=== PATIENT | male | born 1940 | race Caucasian/White ===

== ENCOUNTER 2019-04-05 17:43 | Emergency (ER) | payer BC, MEDICARE ==
[2019-04-05 18:23] VITALS: BP 155/96
--- NOTE | 2019-04-05 18:43 | UC ---
Bite Injury/Animal HPI - HPI Summary HPI Summary: 78-year-old male with a chief complaint of a tick them that it in his right chest wall. Patient believes his been there for couple of days. He notes that today he and his pulled out most of it but the mouth parts are still left in there. There is a small amount of redness right near the the mouth parts. No bull's-eye rash. No fevers or chills patient feels well. - History of Current Complaint Chief Complaint: UCSkin Stated Complaint: TICK BITE Time Seen by Provider: 04/05/19 18:34 Pain Intensity: 4 - Allergies/Home Medications Allergies/Adverse Reactions: Allergies Allergy/AdvReac Type Severity Reaction Status Date / Time No Known Allergies Allergy Verified 04/05/19 18:23 Home Medications: Home Medications Naproxen Sodium [Aleve] PRN 04/05/19 [History] PMH/Surg Hx/FS Hx/Imm Hx Previously Healthy: Yes Endocrine History: Dyslipidemia Cardiovascular History: Hypertension - Surgical History Surgical History: Yes Surgery Procedure, Year, and Place: Left shoulder surgery, tonsillectomy - Family History Known Family History: Positive: Non-Contributory - Social History Alcohol Use: Rare Substance Use Type: None Smoking Status (MU): Never Smoked Tobacco Review of Systems All Other Systems Reviewed And Are Negative: Yes Constitutional: Positive: Negative Skin: Positive: Other - SEE HPI Eyes: Positive: Negative ENT: Positive: Negative Respiratory: Positive: Negative Cardiovascular: Positive: Negative Gastrointestinal: Positive: Negative Motor: Positive: Negative Neurovascular: Positive: Negative Musculoskeletal: Positive: Negative Neurological: Positive: Negative Psychological: Positive: Negative Is Patient Immunocompromised?: No Physical Exam Triage Information Reviewed: Yes Appearance: Well-Appearing, No Pain Distress, Well-Nourished Vital Signs: Initial Vital Signs Temp 97.4 F 04/05/19 18:19 Pulse 82 04/05/19 18:19 Resp 16 04/05/19 18:19 BP 155/96 04/05/19 18:19 Pulse Ox 97 04/05/19 18:19 Vital Signs Reviewed: Yes Eye Exam: Normal Eyes: Positive: Conjunctiva Clear Neck: Positive: Supple Respiratory: Positive: No respiratory distress Musculoskeletal Exam: Normal Musculoskeletal: Positive: Strength Intact, ROM Intact Neurological Exam: Normal Neurological: Positive: Alert, Muscle Tone Normal Psychological Exam: Normal Psychological: Positive: Age Appropriate Behavior Skin: Positive: Other - RIGHT CHEST WALL 5MM ERYTHEMA WITH 1MM CENTRAL BLACK FB. NO BULLS EYE RASH Bite Injury Course/Dx - Differential Dx/Diagnosis Provider Diagnosis: Tick bite of chest wall Discharge - Sign-Out/Discharge Documenting (check all that apply): Patient Departure All imaging exams completed and their final reports reviewed: No Studies - Discharge Plan Condition: Stable Disposition: HOME Prescriptions: DOXYcycline CAP(*) [DOXYcycline 100MG CAP(*)] 200 mg PO ONCE #2 cap Patient Education Materials: Tick Bite (ED) Referrals: Gage Lafleur MD [Primary Care Provider] - Additional Instructions: FOLLOW UP WITH YOUR DOCTOR IF NOT COMPLETELY IMPROVED. GET REEVALUATED SOONER IF YOUR CONDITION WORSENS; BULLS EYE RASH, SYMPTOMS OF LYME DISEASE OR ANY QUESTIONS OR CONCERNS. - Billing Disposition and Condition Condition: STABLE Disposition: Home
== END 2019-04-05 18:45 | disposition home or self-care (01) ==
LOC: UCEAST 17:43
DX: S20.361A Insect bite (nonvenomous) of right front wall of thorax, initial encounter (principal); L53.9 Erythematous condition, unspecified; W57.XXXA Bitten or stung by nonvenomous insect and other nonvenomous arthropods, initial encounter; Y92.9 Unspecified place or not applicable; E78.5 Hyperlipidemia, unspecified; I10 Essential (primary) hypertension
CPT/HCPCS: 99202; G0463

== ENCOUNTER 2019-07-08 01:23 | Emergency (ER) | payer BC, MEDICARE ==
--- NOTE | 2019-07-08 01:59 | ED ---
GI/ HPI - HPI Summary HPI Summary: An 78 y/o male with a Hx of kidney stones presents to [facility] with a chief complaint of right flank pain since 12:00 yesterday. After taking Ibuprofen and sleeping he woke up and still had pain. He denies any nausea, hematuria, hesitancy, frequency or change in his urine. He denies any new swelling in his legs, rashes, CP, SOB, diarrhea or constipation. - History of Current Complaint Chief Complaint: EDFlankPain Time Seen by Provider: 07/08/19 01:44 Stated Complaint: POS KIDNEY STONE PER PT Hx Obtained From: Patient Onset/Duration: Started Hours Ago, Still Present Timing: Constant, Lasting Hours Severity: Severe Current Severity: Severe Pain Intensity: 10 - 10 Location of Pain: Flank Pain Characteristics: Unable to describe Associated Signs and Symptoms: Positive: Other: - negative: hematuria. Negative : Nausea, Vomiting, Diarrhea, Fever, Chest Pain Aggravating Factor(s): Voiding Alleviating Factor(s): Nothing - Allergy/Home Medications Allergies/Adverse Reactions: Allergies Allergy/AdvReac Type Severity Reaction Status Date / Time No Known Allergies Allergy Verified 04/05/19 18:23 PMH/Surg Hx/FS Hx/Imm Hx Endocrine/Hematology History: Denies: Hx Diabetes, Hx Thyroid Disease Cardiovascular History: Reports: Hx Hypertension Respiratory History: Denies: Hx Asthma, Hx Chronic Obstructive Pulmonary Disease (COPD) GI History: Denies: Hx Ulcer - Surgical History Surgery Procedure, Year, and Place: Left shoulder surgery, tonsillectomy - Immunization History Immunizations Up to Date: Yes Infectious Disease History: No Infectious Disease History: Denies: Hx Hepatitis, Hx Human Immunodeficiency Virus (HIV), Traveled Outside the [place] in Last 30 Days - Family History Known Family History: Positive: Non-Contributory - Social History Alcohol Use: Rare Substance Use Type: Reports: None Smoking Status (MU): Never Smoked Tobacco Review of Systems Negative: Fever Negative: Chest Pain Negative: Shortness Of Breath Negative: Vomiting, Diarrhea, Nausea Positive: flank pain. Negative: frequency, hematuria, urgency Negative: Edema Negative: Rash All Other Systems Reviewed And Are Negative: Yes Physical Exam - Summary Physical Exam Summary: Constitutional: Well-developed, Well-nourished, Alert. (-) Distressed Skin: Warm, Dry HENT: Normocephalic; Atraumatic Eyes: Conjunctiva normal Neck: Musculoskeletal ROM normal neck. (-) JVD, (-) Stridor, (-) Tracheal deviation Cardio: Rhythm regular, rate normal, Heart sounds normal; Intact distal pulses; The pedal pulses are 2+ and symmetric. Radial pulses are 2+ and symmetric. (-) Murmur Pulmonary/Chest wall: Effort normal. (-) Respiratory distress, (-) Wheezes, (-) Rales Abd: Soft, (-) tenderness, (-) Distension, (-) Guarding, (-) Rebound Musculoskeletal: (-) Edema Lymph: (-) Cervical adenopathy Neuro: Alert, Oriented x3 Psych: Mood and affect Normal Triage Information Reviewed: Yes Vital Signs On Initial Exam: Initial Vitals Temp Pulse Resp BP Pulse Ox 97.9 F 72 18 192/98 97 07/08/19 01:28 07/08/19 01:28 07/08/19 01:28 07/08/19 01:28 07/08/19 01:28 Vital Signs Reviewed: Yes Diagnostics - Vital Signs Vital Signs Temp Pulse Resp BP Pulse Ox 07/08/19 01:28 97.9 F 72 18 192/98 97 - Laboratory Result Diagrams: 07/08/19 02:18 07/08/19 02:18 Lab Statement: Any lab studies that have been ordered have been reviewed, and results considered in the medical decision making process. - CT abdomen/pelvis CT Interpretation Completed By: Radiologist Summary of CT Findings: 1. Small nonobstructing bilateral renal calculi. No ureteral calculi are. evident and there is no evidence of obstructive uropathy. 2. Colonic diverticulosis without diverticulitis. 3. Otherwise negative CT abdomen/pelvis. ED physician has reviewed this imaging report. GIGU Course/Dx - Course Course Of Treatment: An 78 y/o male with a Hx of kidney stones presents to [facility] with a chief complaint of right flank pain since 12:00 yesterday. The physical exam was unremarkable. In the ED course the patient was given Morphine IV and Toradol IV. Blood work, chemistries and urines obtained and are WNL. Abdomen/pelvis CT impression: 1. Small nonobstructing bilateral renal calculi. No ureteral calculi are. evident and there is no evidence of obstructive uropathy. 2. Colonic diverticulosis without diverticulitis. 3. Otherwise negative CT abdomen/pelvis. The patient will be discharged home with a prescription for percocet and follow up with his PCP. The patient is agreeable with this plan. - Diagnoses Provider Diagnoses: Back pain Discharge ED - Sign-Out/Discharge Documenting (check all that apply): Patient Departure - DC Patient Received Moderate/Deep Sedation with Procedure: No - Discharge Plan Condition: Stable Disposition: HOME Prescriptions: oxyCODONE/Acetamin 5/325 MG* [Percocet 5/325 TAB*] 1 tab PO Q4H PRN #10 tab MDD 6 PRN Reason: Pain - Mild Patient Education Materials: Back Pain (ED) Print Language: [id number] Referrals: Gage Lafleur MD [Primary Care Provider] - - Billing Disposition and Condition Condition: STABLE Disposition: Home - Attestation Statements Document Initiated by Celine: Yes Documenting Scribe: Haider Harper Provider For Whom Celine is Documenting (Include Credential): Rowena Barr MD Scribe Attestation: I, Haider Harper, scribed for Rowena Crawford MD on 08/25/19 at 1109. Scribe Documentation Reviewed: Yes Provider Attestation: The documentation as recorded by the Haider carvalho accurately reflects the service I personally performed and the decisions made by me, Rowena Crawford MD Status of Scribe Document: Viewed
[2019-07-08] MEDS ORDERED: Morphine 4 MG/ML VIAL (1 ml) 4 MG/ML VIAL IV ONE (02:02)
[2019-07-08] MEDS ORDERED: Ketorolac INJ* 30 MG/ML 1 ML VIAL IV PUSH ONE (02:02)
[2019-07-08 02:37] LABS: ABS Basophils 0.1 10^3/ul (0-0.2); ABS Eosinophils 0.2 10^3/ul (0-0.6); ABS Lymphocytes 0.9 10^3/ul (1.0-4.8); ABS Monocytes 0.9 10^3/ul (0-0.8); ABS Neutrophils 6.4 10^3/ul (1.5-7.7); Eosinophil % 1.9 %; Hematocrit 45 % (42-52); Hemoglobin 15.9 g/dL (14.0-18.0); Lymphocyte % 10.2 %; Mean Corpuscular HGB Conc 35 g/dL (31-36); Mean Corpuscular Hemoglobin 33 pg (27-31); Mean Corpuscular Volume 94 fL (80-94); Nucleated Red Blood Cells % 0.1; Platelet Count 263 10^3/uL (150-450); Red Cell Distribution Width 13 % (10-15); White Blood Count 8.3 10^3/uL (3.5-10.8)
[2019-07-08 02:54] LABS: Albumin 4.2 g/dL (3.2-5.2); Albumin/Globulin Ratio 1.7 (1-3); BUN/Creatinine Ratio 13.1 (8-20); C Reactive Protein 7.34 mg/L (<8.01); Calcium 9.5 mg/dL (8.6-10.3); EGFR African American 80.5 (>60); EGFR Non-African American 66.5 (>60); Globulin 2.5 g/dL (2-4); Potassium 4.1 mmol/L (3.5-5.0); Total Bilirubin 0.5 mg/dL (0.2-1.0); Total Protein 6.7 g/dL (6.4-8.9)
[2019-07-08 04:09] LABS: Urine Appearance Clear; Urine Bilirubin Negative (Negative); Urine Blood Negative (Negative); Urine Color Yellow; Urine Glucose Negative (Negative); Urine Ketones Negative (Negative); Urine Nitrite Negative (Negative); Urine Protein Negative (Negative); Urine Specific Gravity 1.016 (1.010-1.030); Urine Urobilinogen Negative (Negative)
[2019-07-08] MEDS ORDERED: oxyCODONE/Acetamin 10/325(NF) TAB PO ONE (04:16)
[2019-07-08] MEDS ORDERED: oxyCODONE TAB* 5 MG TAB PO ONE (05:00)
[2019-07-08] MEDS ORDERED: oxyCODONE/Acetamin 5/325 MG* TAB PO ONE (05:00)
[2019-07-08 06:42] VITALS: BP 189/90
== END 2019-07-08 06:41 | disposition home or self-care (01) ==
LOC: ED 01:23
DX: N20.0 Calculus of kidney (principal); K57.30 Diverticulosis of large intestine without perforation or abscess without bleeding; I10 Essential (primary) hypertension
CPT/HCPCS: 36415; 74176; 80053; 81003; 83605; 83690; 85025; 86140; 87040; 96374; 96375; 99283; A9270-GY; J1885; J2270